=== PATIENT | male | born 1995 | race African-American/Black ===

== ENCOUNTER 2019-03-03 02:44 | Emergency (ER) | payer OTHER, BC ==
[~2019-03-03] VITALS: Ht 182.9 cm; Wt 106.8 kg
[2019-03-03 02:46] VITALS: BP 125/67
[2019-03-03 04:21] LABS: BASO % 0.4 % (0.0-1.0); EOS # 0.1 10^3/uL (0.0-0.5); HEMATOCRIT 47.8 % (42.0-52.0); HEMOGLOBIN 14.8 g/dl (13.5-17.5); LYMPH # 2.9 10^3/uL (1.5-5.0); LYMPH % 41.7 % (24.0-44.0); MEAN CORPUSCULAR HEMOGLOBIN 27.4 pg (27.0-33.0); MEAN CORPUSCULAR VOLUME 88.5 fl (80.0-96.0); MONO # 0.8 10^3/uL (0.0-0.8); MONO % 11.3 % (0.0-5.0); NEUTROPHILS # 3.1 10^3/uL (1.5-8.5); PLATELET COUNT, AUTOMATED 336 10^3/uL (150-450)
[2019-03-03 04:38] LABS: INR 1.06; PROTHROMBIN TIME 13.5 SECONDS (11.8-14.0)
[2019-03-03 04:39] LABS: PARTIAL THROMBOPLASTIN TIME 37.1 SECONDS (25.0-38.4)
[2019-03-03 04:54] LABS: ALBUMIN 4.1 GM/DL (3.2-5.2); ALT/SGPT 16 U/L (12-78); BILIRUBIN,DIRECT < 0.1 MG/DL (0.0-0.2); BILIRUBIN,TOTAL 0.2 MG/DL (0.2-1.0); BLOOD UREA NITROGEN 14 MG/DL (7-18); CALCIUM LEVEL 8.8 MG/DL (8.5-10.1); CARBON DIOXIDE LEVEL 32 MEQ/L (21-32); CHLORIDE LEVEL 103 MEQ/L (98-107); CK-MB VALUE MASS < 1.0 NG/ML (<3.6); CPK CREATINE PHOSPHOKINASE 319 U/L (39-308); CREATININE FOR GFR 1.07 MG/DL (0.70-1.30); FREE T4 1.02 NG/DL (0.76-1.46); GLOMERULAR FILTRATION RATE > 60.0 (>60); GLUCOSE, FASTING 97 MG/DL (70-100); LIPASE 108 U/L (73-393); MB/CK RELATIVE INDEX 0.31 (< OR =4); POTASSIUM SERUM 4.3 MEQ/L (3.5-5.1); SODIUM LEVEL 140 MEQ/L (136-145); TROPONIN I < 0.02 NG/ML (< 0.10)
--- NOTE | 2019-03-03 05:29 | REP ---
Clinical: Acute chest pain . Comparison: None . Technique: PA and lateral. Findings: The mediastinum and cardiac silhouette are normal. The lung ballard are clear and without acute consolidation, effusion, or pneumothorax. The skeletal structures are intact and normal. Impression: 1. No acute cardiopulmonary process. Electronically Signed by Devang Rayo MD 03/03/2019 05:22 A
--- NOTE | 2019-03-03 05:50 | ECGEPIP ---
[facility] - ED Test Date: 2019-03-03 Pat Name: KENNA RAMIREZ Department: Room: - Gender: Male Csw: : 1995 Requested By: SLIME Valero Order Number: [id number] Reading MD: Blair Kaur Measurements Intervals [place] Rate: 75 P: 60 NM: 155 QRS: 47 QRSD: 84 T: 15 QT: 357 QTc: 400 Interpretive Statements SINUS RHYTHM WITH SINUS ARRHYTHMIA BENIGN EARLY REPOLARIZATION NO PRIORS FOR COMPARISON Electronically Signed on 03-03-2019 5:50:06 EST by Blair Kaur
[2019-03-03 06:17] LABS: D-DIMER QUANT < 270 ng/ml (<500)
== END 2019-03-03 06:49 | disposition home or self-care (01) ==
LOC: M ED 02:44
DX: R07.9 Chest pain, unspecified (principal); Z88.0 Allergy status to penicillin

== ENCOUNTER → 2020-02-15 | Outpatient (REF) | payer BC, OTHER ==
[~2020-02-15] MED LIST: COLA100C5 PO; MIRA3350 PO
[2020-02-15 15:30] LABS: BASO % 0.7 % (0.0-1.0); EOS # 0.1 10^3/uL (0.0-0.5); EOS % 1.2 % (0.0-3.0); HEMATOCRIT 47.6 % (42.0-52.0); HEMOGLOBIN 14.8 g/dl (13.5-17.5); LYMPH # 2.7 10^3/uL (1.5-5.0); LYMPH % 47.2 % (24.0-44.0); MEAN CORPUSCULAR HEMOGLOBIN 28.1 pg (27.0-33.0); MEAN CORPUSCULAR HGB CONC 31.1 g/dl (32.0-36.5); MEAN CORPUSCULAR VOLUME 90.5 fl (80.0-96.0); MONO # 0.5 10^3/uL (0.0-0.8); MONO % 8.7 % (0.0-5.0); NEUTROPHILS # 2.4 10^3/uL (1.5-8.5); NEUTROPHILS % 41.9 % (36.0-66.0); PLATELET COUNT, AUTOMATED 337 10^3/uL (150-450); RED BLOOD COUNT 5.26 10^6/uL (4.30-6.10); WHITE BLOOD COUNT 5.7 10^3/uL (4.0-10.0)
[2020-02-15 16:04] LABS: ALBUMIN 4.5 GM/DL (3.2-5.2); ALT/SGPT 19 U/L (12-78); BILIRUBIN,TOTAL 0.8 MG/DL (0.2-1.0); BLOOD UREA NITROGEN 12 MG/DL (7-18); CALCIUM LEVEL 9.4 MG/DL (8.5-10.1); CARBON DIOXIDE LEVEL 30 MEQ/L (21-32); CHLORIDE LEVEL 100 MEQ/L (98-107); CHOLESTEROL LEVEL 259 MG/DL (<200); CHOLESTEROL RISK RATIO 5.285 (<5); CREATININE FOR GFR 0.95 MG/DL (0.70-1.30); FREE T4 1.11 NG/DL (0.76-1.46); GLOMERULAR FILTRATION RATE > 60.0 (>60); GLUCOSE, FASTING 72 MG/DL (70-100); HDL CHOLESTEROL 49 MG/DL (>40); LDL CHOLESTEROL 197 MG/DL (<100); NON-HDL-C 210 MG/DL; POTASSIUM SERUM 4.1 MEQ/L (3.5-5.1); SODIUM LEVEL 136 MEQ/L (136-145); TRIGLYCERIDES LEVEL 66 MG/DL (<150)
== END ==
LOC: M SFHCPLAZ 14:36
PROVIDERS: ATTEND Nurse Practitioner Family
DX: Z13.228 Encounter for screening for other metabolic disorders (principal); Z13.220 Encounter for screening for lipoid disorders

== ENCOUNTER 2020-02-18 17:49 | Emergency (ER) | payer BC, OTHER ==
[~2020-02-18] VITALS: Ht 182.9 cm; Wt 95.5 kg
[2020-02-18] MEDS ORDERED: KETOROLAC 30 MG/ML 1ML VIAL IV ONE (18:15)
[2020-02-18 18:53] LABS: BASO % 0.3 % (0.0-1.0); EOS # 0.1 10^3/uL (0.0-0.5); EOS % 1.4 % (0.0-3.0); HEMATOCRIT 45.8 % (42.0-52.0); HEMOGLOBIN 14.2 g/dl (13.5-17.5); LYMPH % 40.9 % (24.0-44.0); MEAN CORPUSCULAR HEMOGLOBIN 27.7 pg (27.0-33.0); MEAN CORPUSCULAR VOLUME 89.3 fl (80.0-96.0); MONO # 0.5 10^3/uL (0.0-0.8); MONO % 7.4 % (0.0-5.0); NEUTROPHILS # 3.7 10^3/uL (1.5-8.5); NEUTROPHILS % 49.7 % (36.0-66.0); PLATELET COUNT, AUTOMATED 342 10^3/uL (150-450); RED BLOOD COUNT 5.13 10^6/uL (4.30-6.10); WHITE BLOOD COUNT 7.3 10^3/uL (4.0-10.0)
[2020-02-18] MEDS ORDERED: ISOVUE-370 76% 100ML VIAL As Ordered ONE (19:17)
--- NOTE | 2020-02-18 20:08 | REPVR ---
PROCEDURE INFORMATION: Exam: CT Abdomen And Pelvis With Contrast Exam date and time: 02/18/2020 7:17 PM Age: 24 years old Clinical indication: Abdominal pain; Additional info: Periumbilic pain TECHNIQUE: Imaging protocol: Computed tomography of the abdomen and pelvis with intravenous contrast. Radiation optimization: All CT scans at this facility use at least one of these dose optimization techniques: automated exposure control; mA and/or kV adjustment per patient size (includes targeted exams where dose is matched to clinical indication); or iterative reconstruction. Contrast material: ISOVUE 370; Contrast volume: 100 ml; Contrast route: INTRAVENOUS (IV); COMPARISON: No relevant prior studies available. FINDINGS: Liver: Normal. No mass. Gallbladder and bile ducts: Normal. No calcified stones. No ductal dilation. Pancreas: Normal. No ductal dilation. Spleen: Normal. No splenomegaly. Adrenal glands: Normal. No mass. Kidneys and ureters: Normal. No hydronephrosis. Stomach and bowel: Trace amount of fluid noted at the base of the cecum. Scattered colonic diverticula. Mild wall thickening suggested of the proximal sigmoid colon no pericolonic inflammation. Appendix: The appendix diameter measures between 5 and 7 mm. No definite periappendiceal inflammation.. Intraperitoneal space: Trace Amount of free fluid in the posterior cul-de-sac. Mild hazy density in the mesenteric fat particularly in the anterior abdomen above the umbilicus. Vasculature: Unremarkable. No abdominal aortic aneurysm. Lymph nodes: Unremarkable. No enlarged lymph nodes. Urinary bladder: Unremarkable as visualized. Reproductive: Unremarkable as visualized. Bones/joints: Unremarkable. No acute fracture. Soft tissues: Small umbilical hernia containing fat measuring 1.6 cm at its base IMPRESSION: 1. Small umbilical hernia with hazy density within the mesentery at the base of the hernia extending into the abdomen. This could represent early strangulation. 2. Trace amount of free fluid in the posterior pelvis and at the base of the cecum. The appendix appears normal in diameter with no periappendiceal inflammation. 3. Mild wall thickening suggested of the proximal sigmoid colon with no Laney colonic inflammation. The wall thickening could be a reflection of under distension. Colitis or inflammatory bowel disease are less likely diagnostic considerations.. Electronically signed by: Maye Mejía On 02/18/2020 20:08:49 PM
[2020-02-18 20:15] LABS: ALBUMIN 4.3 GM/DL (3.2-5.2); ALT/SGPT 13 IU/L (0-32); BILIRUBIN,DIRECT < 0.1 MG/DL (0.0-0.2); BILIRUBIN,TOTAL 0.3 MG/DL (0.2-1.0); TOTAL PROTEIN 8.1 GM/DL (6.4-8.2)
[2020-02-18 20:16] LABS: LIPASE 85 U/L (73-393)
[2020-02-18] MEDS ORDERED: COLA100C5 PO (20:27)
[2020-02-18] MEDS ORDERED: MIRA3350 PO (20:27)
[2020-02-18 20:42] VITALS: BP 136/70
--- NOTE | 2020-02-19 09:30 | ED PDOC ---
Post-Departure Follow-Up dr nevarez faxed formal report of ct abd/p for fu Daniel Mast MD Feb 19, 2020 09:30
== END 2020-02-18 21:31 | disposition home or self-care (01) ==
LOC: M ED 17:49
DX: K42.0 Umbilical hernia with obstruction, without gangrene (principal); K59.00 Constipation, unspecified; Z88.0 Allergy status to penicillin
CPT/HCPCS: 36415; 74177; 80047; 80076; 83690; 85025; 96374; 99284; J1885; Q9967

== ENCOUNTER → 2020-03-18 | Outpatient (CLI) | payer BC, OTHER | LOC: M LABSMTC 08:32 | PROVIDERS: ATTEND Anesthesiology | DX: Z01.812 Encounter for preprocedural laboratory examination (principal); Z20.822 Contact with and (suspected) exposure to COVID-19 ==

== ENCOUNTER 2020-03-22 06:24 | Day surgery (SDC) | payer BC, OTHER ==
[~2020-03-22] VITALS: Ht 182.9 cm; Wt 99.5 kg
[~2020-03-22 06:24] MED LIST changes: +CelecoXIB (CeleBREX) 100 MG CAP PO ONE; +LR 1,000 ML IV ONE; +LevoFLOXacin IV 500 MG in IV 1 EA IV ONE
--- OUTSIDE RECORDS SUMMARY | 2020-03-22 06:27 | CCD ---
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 Name Role Phone Johanna Wisdom Unavailable PROBLEMS Type Condition ICD9-CM Code GTH20-TT Code Onset Dates Condition S tatus SNOMED Code Notes Problem Hyperlipidemia E78.5 Active [id number] ALLERGIES Allergen (clinical drug ingredient) Drug/Non Drug Allergy do cumented on EMR Reaction Allergy Type Onset Date Status amoxicillin Amoxicillin([facility] Code:[address]-63) Rash Drug Aller gy 02/15/2020 Active ENCOUNTERS from 1995 to 2020-02-20 Encounter Location Date Provider Diagnosis [address] [address] Feb, Johanna Wisdom Skin lesion of scalp L98.9 ; Hyperlipide antonino E78.5 ; Screening for lipid disorders Z13.220 ; Screening for metabolic disorder Z13.228 and Encounter to establish care Z76.89 IMMUNIZATIONS No Information SOCIAL HISTORY Tobacco Use: Social History Observation Description Date Details (start date - stop date) Never Smoker Sex Assigned At : Social History Observation Description Sex Assigned At Unknown Education: Question Answer Notes Level of Education: Finished College Language: Question Answer Notes Languages spoken: Mosotho Scientology: Question Answer Notes [employer] 08 [employer] Sexual Hx: Question Answer Notes Had sex in the last 12 months (vaginal, oral, or anal)? No Have you ever had an STD? No Alcohol Screening: Question Answer Notes Did you have a drink containing alcohol in the past year? Ye s Points 1 Interpretation Negative How often did you have six or more drinks on one occas ion in the past year? Never (0 points) How many drinks did you have on a typica l day when you were drinking in the past year? 1 or 2 (0 points) How often did you have a drink containing alcohol in t he past year? Monthly or less (1 point) Tobacco Use: Question Answer Notes Are you a: never smoker REASON FOR REFERRAL No Information VITAL SIGNS Weight 214 lbs Feb, Height 72 in Feb, BMI 29.02 kg/m2 Feb, Heart Rate 107 /min Feb, Respiratory Rate 18 /min Feb, Temperature 98.2 degrees Fahrenheit Feb, Oximetry 98% Feb, Blood pressure systolic 108 mm Hg Feb, Blood pressure diastolic 74 mm Hg Feb, MEDICATIONS No Known Medications PROCEDURES No Information RESULTS REASON FOR VISIT new patient MEDICAL (GENERAL) HISTORY Type Description Date Surgical History left hip pinning 2011 Goals Section No Information Health Concerns No Information MEDICAL EQUIPMENT No Information MENTAL STATUS No Information FUNCTIONAL STATUS No Information ASSESSMENTS Encounter Date Diagnosis Assessment Notes Treatment Notes Treatm ent Clinical Notes Feb, Skin lesion of scalp (ICD-10 - L98.9) referral to Derm given ongoing chronic for several years. worsening with topical use ? folliculitis DDx: seborrhic dermatitis, psoriasis Feb, Hyperlipidemia (ICD-10 - E78.5) advised diet/lifestyle changes. discussed meds effects/sideeffects Feb, Screening for lipid disorders (ICD-10 - Z13.220) obtain labs Feb, Screening for metabolic disorder (ICD-10 - Z13.2 28) obtain labs Feb, Encounter to establish care (ICD-10 - Z76.89) establishing care PLAN OF TREATMENT Treatment Notes Assessment Notes Clinical Notes Skin lesion of scalp referral to Derm gi jil ongoing chronic for several years. worsening with topical use? folliculitisDDx: seborrhic dermatitis, psoriasis Hyperlipidemia advised diet/lifesty le changes.discussed meds effects/sideeffects Screening for lipid disorders obtain lab s Screening for metabolic disorder obtain labs Encounter to establish care establishing care Future Test Test Name Order Date LIPID PANEL (CARDIAC RISK) 20200614 Next Appt Details 1 Year Reason: Insurance Providers Payer Name Payer Address Payer Phone Insured Name Patient Relati onship to Insured Coverage Start Date Coverage End Date [facility] [address] [facility] [id number] [facility] [place] [address] [address] [facility] [address] [phone] KENNA STEPHENS self
--- OUTSIDE RECORDS SUMMARY | 2020-03-22 06:27 | CCD ---
Author Author [facility] Organization [facility] Address Unknown Phone Unavailable Support Name Relationship Address Phone INDIANRIV* Next Of Kin [address] [address] [facility] [address] [place], [place] [id number] SA[place]BEAU Next Of Kin [address] [place] [address] ALEJANDRA IZABELLA Next Of Kin [address] [place] [address] UE Next Of Kin Unknown Unavailable Izabella Saunders ECON [address] [address] Unavailable Re-disclosure Warning The records that you are about to access may contain information from federally-assisted alcohol or drug abuse programs. If such information is present, then the following federally mandated warning applies: This information has been disclosed to you from records protected by federal confidentiality rules (42 CFR part 2). The federal rules prohibit you from making any further disclosure of this information unless further disclosure is expressly permitted by the written consent of the person to whom it pertains or as otherwise permitted by 42 CFR part 2. A general authorization for the release of medical or other information is NOT sufficient for this purpose. The Federal rules restrict any use of the information to criminally investigate or prosecute any alcohol or drug abuse patient.The records that you are about to access may contain highly sensitive health information, the redisclosure of which is protected by Article 27-F of the [facility] Public Health law. If you continue you may have access to information: Regarding HIV / AIDS; Provided by facilities licensed or operated by the [facility] Office of Mental Health; or Provided by the [facility] Office for People With Developmental Disabilities. If such information is present, then the following [facility] mandated warning applies: This information has been disclosed to you from confidential records which are protected by state law. State law prohibits you from making any further disclosure of this information without the specific written consent of the person to whom it pertains, or as otherwise permitted by law. Any unauthorized further disclosure in violation of state law may result in a fine or residential sentence or both. A general authorization for the release of medical or other information is NOT sufficient authorization for further disc losure. Allergies and Adverse Reactions Type Description Substance Reaction Status Data Source(s ) Drug allergy Amoxicillin Amoxicillin Rash Active eCW1 ([facility]) Encounters Encounter Providers Location Date Indications Data Source(s ) Outpatient [address] [facility] [address] 02/15/2020 12:00:00 AM EST eCW1 ([facility]) Outpatient 03/08/2019 10:46:00 AM EST [facility] Imaging Medications Medication Brand Name Start Date Product Form Dose Route Admi nistrative Instructions Pharmacy Instructions Status Indications Reaction Description Data Source(s) Medrol 4 MG Medrol 4 MG 08/30/2019 12:00:00 AM EDT active Medrol 4 MG eCW2 ([facility]) Insurance Providers Payer name Policy type / Coverage type Policy ID Covered constitution party ID Covered constitution party's relationship to langley Policy Langley Plan Information [facility] [employer] [id number] [id number] [facility] CARE [id number] SP [id number] [facility] [id number] SP [id number] [facility] [employer] [id number] FA2 [id number] [facility] B [id number] S [id number] [facility] [id number] SP [id number] [facility] [id number] SP [id number] [facility] O [id number] S [id number] [employer] [id number] MO2 [id number] [employer] MEDICARE [id number] SP [id number] [employer] [id number] MO2 [id number] Problems, Conditions, and Diagnoses Code Display Name Description Problem Type Effective Dates Data Source(s) E78.5 Hyperlipidemia Hyperlipidemia Problem 02/15/2020 12:00: 00 AM EST eCW1 ([facility]) Results ID Date Data Source [id number] 03/17/2020 08:30:00 AM EST [facility] Name Value Range Interpretation Code Description Data Carolynn rce(s) Supporting Document(s) SARS coronavirus 2 RNA Not Detected [facility] [place] This lab was ordered by [facility] and reported by [facility]. ID Date Data Source LIPID PANEL (CARDIAC RISK) 02/15/2020 12:00:00 AM EST eCW1 ( [facility]) Name Value Range Interpretation Code Description Data Carolynn rce(s) Supporting Document(s) Cholesterol in HDL [Moles/volume] in Serum or Plasma 49 >40 eCW1 ([facility]) Triglyceride [Mass/volume] in Serum or Plasma by calculation 66 <150 eCW1 ([facility]) Cholesterol [Moles/volume] in Serum or Plasma 259 <200 eCW1 ([facility]) 5.285 <5 eCW1 ([facility]) Cholesterol in LDL [Mass/volume] in Serum or Plasma by calculation 19 7 <100 eCW1 ([facility]) 210 eCW1 ([facility]) ID Date Data Source FREE T4 & TSH PANEL 02/15/2020 12:00:00 AM EST eCW1 ([facility]) Name Value Range Interpretation Code Description Data Carolynn rce(s) Supporting Document(s) 2.340 0.358-3.740 eCW1 (Replaced by [facility]) 1.11 0.76-1.46 eCW1 ([facility]) ID Date Data Source Comprehensive Metabolic Profile (CMP) 02/15/2020 12:00:00 AM EST eCW1 ([facility]) Name Value Range Interpretation Code Description Data Carolynn rce(s) Supporting Document(s) 72 70-100 eCW1 ([facility]) 136 136-145 eCW1 ([facility]) 12 7-18 eCW1 ([facility]) > 60.0 >60 eCW1 ([facility]) 0.95 0.70-1.30 eCW1 ([facility]) 30 21-32 eCW1 ([facility]) 4.1 3.5-5.1 eCW1 ([facility]) 100 98-107 eCW1 ([facility]) 9.4 8.5-10.1 eCW1 ([facility]) 13 7-37 eCW1 ([facility]) 68 45-117 eCW1 ([facility]) 19 12-78 eCW1 ([facility]) 8.0 6.4-8.2 eCW1 ([facility]) 4.5 3.2-5.2 eCW1 ([facility]) 0.8 0.2-1.0 eCW1 ([facility]) 1.3 eCW1 ([facility]) ID Date Data Source CBC with Differential 02/15/2020 12:00:00 AM EST eCW1 ([facility]) Name Value Range Interpretation Code Description Data Carolynn rce(s) Supporting Document(s) 5.26 4.30-6.10 eCW1 ([facility]) 5.7 4.0-10.0 eCW1 ([facility]) 14.8 13.5-17.5 eCW1 ([facility]) 28.1 27.0-33.0 eCW1 ([facility]) 90.5 80.0-96.0 eCW1 ([facility]) 47.6 42.0-52.0 eCW1 ([facility]) 41.9 36.0-66.0 eCW1 ([facility]) 337 150-450 eCW1 ([facility]) 31.1 32.0-36.5 eCW1 ([facility]) 12.3 11.5-14.5 eCW1 ([facility]) 8.7 0.0-5.0 eCW1 ([facility]) 1.2 0.0-3.0 eCW1 ([facility]) 47.2 24.0-44.0 eCW1 ([facility]) 2.4 1.5-8.5 eCW1 ([facility]) 0.1 0.0-0.5 eCW1 ([facility]) 0.5 0.0-0.8 eCW1 ([facility]) 0.7 0.0-1.0 eCW1 ([facility]) 2.7 1.5-5.0 eCW1 ([facility]) 0.0 0.0-0.2 eCW1 ([facility]) Procedure Social History Code Duration Value Status Description Data Source(s ) Smoking 02/15/2020 12:00:00 AM EST Never Smoker completed Never S moker eCW1 ([facility]) Smoking 08/30/2019 12:00:00 AM EDT Never Smoker completed Never S moker eCW2 ([facility]) Vital Signs ID Date Data Source UNK Name Value Range Interpretation Code Description Data Source(s) Diastolic blood pressure 74 mm[Hg] 74 mm[Hg] eCW1 ([facility]) Systolic blood pressure 108 mm[Hg] 108 mm[Hg] e CW1 ([facility]) Body temperature 98.2 [degF] 98.2 [degF] eCW1 ( [facility]) Respiratory rate 18 /min 18 /min eCW1 ([facility]) Heart rate 107 /min 107 /min eCW1 ([facility]) Body mass index (BMI) [Ratio] 29.02 kg/m2 29.02 kg/m2 eCW1 ([facility]) Body height 72 [in_i] 72 [in_i] eCW1 ([facility]) Body weight 214 [lb_av] 214 [lb_av] eCW1 ([facility]) Patient Treatment Plan of Care Planned Activity Planned Date Details Description Data Source (s) Medrol 4 MG 08/30/2019 12:00:00 AM EDTerri ANAYA2 ([facility]
[2020-03-22] MEDS ORDERED: BUPIVACAINE HCL 0.25% 10ML VIAL As Ordered ONE (07:16)
[2020-03-22] MEDS ORDERED: LIDOCAINE 1% SDV 30ML VIAL As Ordered ONE (07:16)
[2020-03-22] MEDS ORDERED: BUPIVACAINE HCL 0.25% 30ML VIAL As Ordered ONE (07:17)
[2020-03-22] MEDS ORDERED: BUPIVACAINE LIPOSOME/PF 1.3% 20ML VIAL (13.3MG/ML)(EXPAREL)(C9290 PER1MG) As Ordered ONE (07:17)
[2020-03-22] MEDS ORDERED: MIDAZOLAM INJ 2MG/2ML VIAL (J2250 PER 1MG) As Ordered ONE (07:52)
[2020-03-22] MEDS ORDERED: propofoL 200 MG/20 ML VIAL As Ordered ONE (07:52)
[2020-03-22] MEDS ORDERED: ONDANSETRON 4MG/2ML VIAL As Ordered ONE (07:52)
[2020-03-22] MEDS ORDERED: dexameTHASONE 4 MG/ML 1ML VIAL (J1100 PER 1MG) As Ordered ONE (07:52)
[2020-03-22] MEDS ORDERED: SUGAMMADEX SODIUM 500 MG/5 ML VIAL (BRIDION) As Ordered ONE (07:52)
[2020-03-22] MEDS ORDERED: LIDOCAINE 2% 100MG/5ML SDV (FOR ANES.) As Ordered ONE (07:52)
[2020-03-22] MEDS ORDERED: ROCURONIUM BROMIDE 50 MG/5 ML VIAL As Ordered ONE ×2 (07:52→08:52)
[2020-03-22] MEDS ORDERED: fentaNYL 250 MCG/5 ML INJECTION (J3010) As Ordered ONE (07:52)
[2020-03-22] MEDS ORDERED: ACETAMINOPHEN 1000MG 100ML IV BTL (OFIRMEV) (J0131 PER 10MG) As Ordered ONE (07:57)
[2020-03-22] MEDS ORDERED: KETOROLAC 60MG 2ML VIAL As Ordered ONE (08:33)
[2020-03-22] MEDS ORDERED: oxyCODONE 5MG TAB As Ordered ONE (10:25)
[2020-03-22] MEDS ORDERED: fentaNYL 100 MCG/2 ML INJECTION (J3010) As Ordered ONE (10:26)
[2020-03-22] MEDS: oxyCODONE 5MG TAB PO PRN ×3 (10:30→11:34)
[2020-03-22] MEDS: fentaNYL 100 MCG/2 ML INJECTION (J3010) IV PRN ×3 (10:30→11:15)
[2020-03-22] MEDS ORDERED: LR 1,000 ML IV SCH (10:45)
[2020-03-22] MEDS ORDERED: NORCO, ANEXSIA 5/325MG TABLET (HYDROcodone/ACETAMINOPHEN) PO PRN (10:45)
[2020-03-22] MEDS ORDERED: ONDANSETRON 4MG/2ML VIAL IV PRN ×2 (10:45)
[2020-03-22] MEDS ORDERED: KETOROLAC 30 MG/ML 1ML VIAL IV PRN (10:45)
[2020-03-22] MEDS ORDERED: HYDROMORPHONE HCL 0.5 MG/ 0.5 ML SYRINGE (J1170 PER 1) IV PRN (10:45)
[2020-03-22 12:35] VITALS: BP 141/62
--- NOTE | 2020-03-23 09:24 | ROOPDOC ---
[facility] Report Of Operation Report of Operation DATE OF PROCEDURE: 03/22/20 PREPROCEDURE DIAGNOSES: umbilical hernia. POSTPROCEDURE DIAGNOSES: umbilical hernia with incarcerated preperitoneal fat tissue. PROCEDURE: Robotic assisted laparoscopic umbilical hernia repair. SURGEON: Uyen Armstrong MD REHAB DIRECTOR OCCUPATIONAL THERAPIST: Simran Tamayo NP This bowel assisted me with placement reports, management of the robotic instruments, robotic arms on the field while I was at the surgeon's console, trimming of the mesh introducing it into the abdomen and closure ports ANESTHESIA:General Anesthesia ESTIMATED BLOOD LOSS: Approximately 10 mL. COMPLICATIONS: none. REMARKS: 2 cm hernia defect, incarcerated preperitoneal tissue, tiny close by defect with incarcerated preperitoneal tissue close to the insertion of the falciform ligament, 2 cm diastases above and at the level of umbilicus. Placement of 10 x 10 cm midweight PP mesh (BardSoft) with minimal fixation DESCRIPTION OF PROCEDURE: Patient received Levaquin 500 mg IV preoperatively for wound prophylaxis, celebrex 200 mg PO for pain control. Patient was brought to the operating room, placed supine on the operating table. TEDs and Compression boots placed in both lower extremities for DVT prophylaxis. General endotracheal anesthesia started. His left arm tucked. His abdomen then prepped and draped in the usual sterile fashion. The bed is flexed to increase distance between the ASIS and costal cartilage. We paused for a surgical timeout using both pre-incision safety checklist to verify correct patient, procedure site and additional clinical information prior to beginning the procedure Patient has a slightly rounded, mildly protuberant abdomen, wide umbilical cleft with noteable bulging at the superior end of the cleft which is not reducible even under anesthesia. We started with the left upper quadrant approach. Small incision was created with a Veress needle was inserted at the subcostal area about the anterior axillary line. Proper placement confirmed with saline drop technique. CO2 insufflation started to pressure of 15 mmHg. An 8 mm robotic trocar was placed under direct vision laparoscope at the same site. Insertion site was inspected for injury found. No abdominal wall adhesions noted. The umbilical defect and prepertioneal fat herniation confirmed. He was placed in the left side tilt to displace bowels from the left side of the abdominal wall. Under direct visualization to ports were placed along the left side of the abdomen about 12 cm apart. The lower port was a 8 mm long bariatric trocar and the middle camera port is a regular 8 mm port. I performed a bilateral transversus abdominis plane block with our mixture of Exparel and Marcaine and 20 mL NS to created 60 mLs, 30 mLs infiltrated on each side. The [employer] robot tower is then positioned in place and the trochars docked. Instruments were placed under direct vision. I used a robotic scissors connected to monopolar cautery and forceps bipolar forceps connected to a bipolar cord with a 30 robotic laparoscope pointed upwards. I then broke scrub and took control of the camera and instruments at the surgeon's console while my assistant plant control operator remain on the field for management of the instruments and the robotic arms as well as of the mesh on my instructions. I marked a 5 cm circumferential margin around the umbilical hernia defect . I created a preperitoneal pocket starting laterally, then inferiorly and superiorly going around the umbilical defect while taking down the fatty insertion of the falciform ligament. Once we are around the umbilicus the preperitoneal fat tissue that was incarcerated in the fascial defect was reduced together with the peritoneum and I proceeded further on thePatient received 2 g of Ancef IV preoperatively for wound prophylaxis. Patient was brought to the operating room, placed supine on the operating table. Compression boots placed in both lower extremities for DVT prophylaxis. General anesthesia started. His abdomen then prepped and draped in the usual sterile fashion. We paused for a surgical timeout using both pre-incision safety checklist to verify correct patient, procedure site and additional clinical information prior to beginning the procedure Patient is a very rounded protuberant abdomen. He has a narrow deep cleft with a palpable lump at the bottom of the cleft that is nonreducible. We started with the left upper quadrant approach. Small incision was created with a Veress needle was inserted. Proper placement confirmed with saline drop technique. CO2 insufflation started to pressure of 15 mmHg. Displaced lateral subcostally and a used this for my first port placement. An 8 mm robotic trocar was placed under direct vision laparoscope. Insertion site was inspected for injury found. Examination of the abdominal wall shows a piece of omentum going through a small umbilical defect. He was placed in the left side tilted displaced bowels when the left side of the abdominal wall. Under direct visualization to ports were placed along the left side of the abdomen about 12 cm apart. The lower port was a 8 mm long bariatric trocar was middle camera port was regular 8 mm port. I perform a bilateral transversus abdominis plane block with our mixture of Exparel and Marcaine. The dementia robot to send position in place and the trochars duct. Instruments were placed under direct vision. A used a robotic scissors connected to monopolar cautery and forceps bipolar forceps connected to a bipolar cord with a 30 robotic laparoscope pointed upwards. I then scrubbed and took control of the camera and instruments of [employer] console while my assistant plant control operator remain on the field for management of the instruments in the robotic arms as well as of the mesh on my instructions. The omentum was reduced back into the abdomen. I measured a 5 cm margin circumferentially around the edges of the defect which is small. I created a preperitoneal pocket starting laterally going towards the umbilical defect. Once we are around the umbilicus the preperitoneal tissue that was incarcerated in the fascial defect was reduced together with the peritoneum and proceeded towards her right side to create an adequate sized pocket. Once this was done they examined my flap. There was a small hole laterally on the left upper portion of the flap which I would repair later on with a 3-0 Vicryl. The fascial defect together with part of the diastases a few centimeter spillage of bowel was closed with a 0 stratafix nonabsorbable suture. I had my assistant plant control operator, a 15 x 15 cm midweight polypropylene bare mesh (Bard soft) to 10 x 10 cm and this was introduced into the abdomen. The mesh was laid flat onto the abdominal wall and secured with part of the Stratafix suture as I come back towards the center of the closure to hold the mesh in place. I then placed interruptedly 2-0 Vicryl sutures to secure and make sure that the mesh is flat on the abdominal wall about 3 each on both sides of the mesh. Once this was done, the flap was closed with a running suture of 30V LOC. The previously recognized whole in the flap at about the 11 o'clock position was closed with #3 Vicryl. Before, and I severed the abdomen for any injuries or signs of bleeding. The sutures and the ruler was recovered. The abdomen was then deflated. Ports were removed. The 8 mm port sites were closed at the skin with 4-0 Monocryl in subcuticular Patient received 2 g of Ancef IV preoperatively for wound prophylaxis. Patient was brought to the operating room, placed supine on the operating table. Compression boots placed in both lower extremities for DVT prophylaxis. General anesthesia started. His abdomen then prepped and draped in the usual sterile fashion. We paused for a surgical timeout using both pre-incision safety checklist to verify correct patient, procedure site and additional clinical information prior to beginning the procedure Patient is a very rounded protuberant abdomen. He has a narrow deep cleft with a palpable lump at the bottom of the cleft that is nonreducible. We started with the left upper quadrant approach. Small incision was created with a Veress needle was inserted. Proper placement confirmed with saline drop technique. CO2 insufflation started to pressure of 15 mmHg. Displaced lateral subcostally and malik used this for my first port placement. An 8 mm robotic trocar was placed under direct vision laparoscope. Insertion site was inspected for injury found. Examination of the abdominal wall shows a piece of omentum going through a small umbilical defect. He was placed in the left side tilted displaced bowels when the left side of the abdominal wall. Under direct visualization to ports were placed along the left side of the abdomen about 12 cm apart. The lower port was a 8 mm long bariatric trocar was middle camera port was regular 8 mm port. I perform a bilateral transversus abdominis plane block with our mixture of Exparel and Marcaine. The dementia robot to send position in place and the trochars duct. Instruments were placed under direct vision. A used a robotic scissors connected to monopolar cautery and forceps bipolar forceps connected to a bipolar cord with a 30 robotic laparoscope pointed upwards. I then scrubbed and took control of the camera and instruments of [employer] console while my assistant plant control operator remain on the field for management of the instruments in the robotic arms as well as of the mesh on my instructions. The omentum was reduced back into the abdomen. I measured a 5 cm margin circumferentially around the edges of the defect which is small. I created a preperitoneal pocket starting laterally going towards the umbilical defect. Once we are around the umbilicus the preperitoneal tissue that was incarcerated in the fascial defect was reduced together with the peritoneum and proceeded towards her right side to create an adequate sized pocket. Once this was done they examined my flap. There was a small hole laterally on the left upper portion of the flap which I would repair later on with a 3-0 Vicryl. The fascial defect together with part of the diastases a few centimeter spillage of bowel was closed with a 0 stratafix nonabsorbable suture. I had my assistant plant control operator, a 15 x 15 cm midweight polypropylene bare mesh (Bard soft) to 10 x 10 cm and this was introduced into the abdomen. The mesh was laid flat onto the abdominal wall and secured with part of the Stratafix suture as I come back towards the center of the closure to hold the mesh in place. I then placed interruptedly 2-0 Vicryl sutures to secure and make sure that the mesh is flat on the abdominal wall about 3 each on both sides of the mesh. Once this was done, the flap was closed with a running suture of 30V LOC. The previously recognized whole in the flap at about the 11 o'clock position was closed with #3 Vicryl. Before, and I severed the abdomen for any injuries or signs of bleeding. The sutures and the ruler was recovered. The abdomen was then deflated. Ports were removed. The 8 mm port sites were closed at the skin with 4-0 Monocryl in subcuticular where the falciform ligament inserts and this contained some incarcerated fat tissue. The size of the defects T is only a couple millimeters. There is a 2 cm diastases of the rectus muscle superior to the umbilical defect an additional 1 cm in each side. I plicated the diastases roughly starting 5 cm superior to the umbilicus and closed the umbilical fascial defect together with the diastases with a 0 stratafix nonabsorbable suture, I continued another 5 cm inferior to the fascial defect before it came back around to the umbilical hernia closure. I grabbed the lower portion of the umbilicus to re-create the umbilical cleft and also to c lose the space and prevent seroma formation at the closure . I had my assistant plant control operator cut a 15x15 cm midweight polypropylene bare mesh (Bard soft) to 10 x 10 cm and this was introduced into the abdomen. The mesh was laid flat onto the abdominal wall and secured with part of the Stratafix suture as I come back towards the center of the closure to hold the mesh in place. I then placed interruptedly 2-0 Vicryl sutures to secure and make sure that the mesh is flat on the abdominal wall about at the corners on the right side of the mesh, tucked the mesh over the left edge of the peritoneal flap and threw a couple more 2-0 vicryl sutures on the right side fo the midline to hold it in place. Once this was done, the flap was closed with a running suture of 30V LOC. The previously recognized hole in the center of the flap is closed with the remnants of the 3-0 vlock sutre.. The abdomen is then surveyed for any injuries or signs of bleeding. The sutures and the ruler was recovered. The abdomen was then deflated. Ports were removed. The 8 mm port sites were closed at the skin with 4-0 Monocryl in subcuticular fashion. Dermabond used for dressing. Patient is then awakened, extubated and brought to recovery room in stable condition. UYEN ARMSTRONG MD Mar 22, 2020 13:06
== END 2020-03-22 12:50 | disposition home or self-care (01) ==
LOC: M SDC 06:24
PROVIDERS: ATTEND Surgery
DX: K42.0 Umbilical hernia with obstruction, without gangrene (principal); Z88.0 Allergy status to penicillin
CPT/HCPCS: 49653; C1781; C9290; J0131; J1100; J1170; J1885; J1956; J2250; J2405; J3010